=== PATIENT | male | born 1985 | race African-American/Black ===

== ENCOUNTER 2022-06-23 08:59 | Emergency (ER) | payer MEDICAID ==
[~2022-06-23] VITALS: Ht 170.2 cm; Wt 61.2 kg
[2022-06-23 09:00] VITALS: BP_SYST 116
--- NOTE | 2022-06-23 09:00 | NUR ---
BROUGHT BACK TO BED #5 AND TRIAGED. REPORT GIVEN TO RADHA
--- NOTE | 2022-06-23 09:10 | NUR ---
PATIENT AMBULATORY TO ER C/O BRUISE TO LEFT THIGH AFTER INJECTION GIVEN 10 DAYS AGO, NO SIGN OF BRUISING NOTED, EDP MADE AWARE.
--- NOTE | 2022-06-23 09:16 | NUR ---
EDP SEEN PATIENT WITH ORDER JAISON OUT, PATIENT REFUSES BLOOD DRAWN AND SIGNED AMA, D/C INSTRUCTION GIVEN ALL RISKS EXPLAINED TO PATIENT. PATIENT LEFT ER IN GOOD STABLE CONDITION.
[2022-06-23] MEDS ORDERED: IBUP-1971 PO (10:07)
[2022-06-23] MEDS ORDERED: HYDR-3917 PO (10:07)
== END 2022-06-23 09:16 | disposition left against medical advice (07) ==
LOC: SED 08:59
DX: M79.652 Pain in left thigh (principal); Z79.899 Other long term (current) drug therapy
CPT/HCPCS: 99282